=== PATIENT | male | born 1985 | race Hispanic/Latino ===

== ENCOUNTER 2017-03-24 21:44 | Emergency (ER) | payer SELFPAY ==
[2017-03-24 22:17] LABS: Urine Drugs of Abuse Note Disclamer
[2017-03-24 22:19] LABS: Hematocrit 46.4 % (35.5-45.6); Mean Corpuscular HGB Conc 34 % (32-34); Mean Corpuscular Hemoglobin 35 pg (28-32); Mean Corpuscular Volume 102 fl (84-94); Platelet Count 319 K/mm3 (140-440); Red Blood Count 4.54 M/mm3 (3.65-5.03); Red Cell Distribution Width 15.2 % (13.2-15.2); White Blood Count 6.3 K/mm3 (4.5-11.0)
[2017-03-24 22:27] LABS: Bilirubin,Urine NEG (Negative); Blood,Urine NEG (Negative); Ketones,Urine NEG (Negative); Leukocyte Esterase,Urine NEG (Negative); Mucus,Urine FEW /HPF; Nitrite,Urine NEG (Negative); RBC,Urine < 1.0 /HPF (0.0-6.0); Urobilinogen,Urine < 2.0 mg/dL (<2.0); WBC,Urine < 1.0 /HPF (0.0-6.0)
[2017-03-24 22:32] LABS: Anion Gap 21 mmol/L; BUN/Creatinine Ratio 16; Blood Urea Nitrogen 11 mg/dL (9-20); Calcium 9.1 mg/dL (8.4-10.2); Carbon Dioxide 27 mmol/L (22-30); Chloride 99.5 mmol/L (98-107); Glucose 123 mg/dL (75-100); Potassium 4.3 mmol/L (3.6-5.0); Sodium 143 mmol/L (137-145)
[2017-03-24 23:05] LABS: Blastocytes % (Manual) 0 %; Eosinophils % (Manual) 0 % (0.0-4.3)
[2017-03-24 23:07] LABS: Diff Status Complete; Macrocytosis 1+; Platelet Estimate Consistent w Auto
[2017-03-24] MEDS ORDERED: BOOSTRIX IM ONE (23:57)
--- NOTE | 2017-03-24 23:58 | Emergency Department Report ---
<HAL TERRAZAS - Last Filed: 03/25/17 10:33> ED General Adult HPI - General Chief complaint: Psych Stated complaint: DETOX Time Seen by Provider: 03/24/17 23:53 - Related Data Allergies Allergy/AdvReac Type Severity Reaction Status Date / Time No Known Allergies Allergy Verified 03/24/17 21:52 ED Review of Systems ROS: Stated complaint: DETOX Other details as noted in HPI ED Course Vital Signs 03/24/17 03/24/17 03/25/17 21:52 23:57 10:59 Temperature 98.1 F 98.7 F 98 F Pulse Rate 84 83 93 H Respiratory Rate Blood Pressure 129/70 Blood Pressure 139/82 127/70 [Left] O2 Sat by Pulse 98 97 98 Oximetry ED Medical Decision Making - Lab Data Result diagrams: 03/24/17 22:06 03/24/17 22:06 - Radiology Data read By radiologist: CT head: No acute findings CT cervical spine: No acute findings Right hand x-ray: No acute bony abnormality - Medical Decision Making Patient was initially seen and evaluated by Dr. Mahmood. Patient has not a [address] [place] [address] evaluated patient and not a candidate for inpatient treatment. Outpatient resources for [facility] and [facility] have been provided. Alcohol is trending downward. No clinical signs withdrawing gait is steady. Patient has not legally sober however, patient has history of chronic alcohol dependence and may experience alcohol withdrawal symptoms if level drops to low. Patient has a person to pick him up/ride will be discharged upon that person's arrival. Critical care attestation.: If time is entered above; I have spent that time in minutes in the direct care of this critically ill patient, excluding procedure time. ED Disposition Clinical Impression: Alcohol intoxication, Right hand pain, Alcohol abuse Disposition: DC-01 TO HOME OR SELFCARE Is pt being admited?: No Does the pt Need Aspirin: No Condition: Stable Instructions: Abuse of Alcohol (ED), Hand Sprain (ED) Additional Instructions: Follow up with the outpatient resources provided for help with alcohol dependence. Follow-up with orthopedic doctor provided for further evaluation of your hand injury. Take Tylenol or Motrin as needed for pain. Referrals: [facility] [Outside] - 3-[address] [facility], [facility] [Other] - 3-5 Days BOAZ NIETO MD [Staff Physician] - 3-5 Days (orthopedic ) [facility] [Provider Group] - 3-5 Days Time of Disposition: 10:36 <ZOHREH MAHMOOD - Last Filed: 03/26/17 10:08> ED General Adult HPI - General Source: patient Mode of arrival: Ambulatory Limitations: Other (patient poor historian, alcohol intoxication) - History of Present Illness Initial comments: This is a 31-year-old male who is known to this provider, presents to the ER with a complaint of right hand pain status post mechanical fall, alcohol intoxication and requests alcohol detox. Patient is not homicidal or suicidal. He does not think he hit his head or his neck. He has no other complaints. He is not expressing hallucination -: Gradual (patient indicates that he consumed alcohol today) Location: right, upper extremity Radiation: non-radiation Improves with: rest Worsens with: movement Associated Symptoms: loss of appetite ED Review of Systems Constitutional: denies: fever Eyes: denies: eye discharge ENT: denies: epistaxis Respiratory: denies: cough Cardiovascular: denies: chest pain Gastrointestinal: denies: abdominal pain Genitourinary: as per HPI Musculoskeletal: arthralgia, myalgia Skin: lesions Neurological: denies: confusion Psychiatric: denies: homicidal thoughts, suicidal thoughts ED Past Medical Hx - Past Medical History Previous Medical History?: No - Surgical History Past Surgical History?: No - Social History Smoking Status: Current Every Day Smoker Substance Use Type: Alcohol ED Physical Exam - General Limitations: Other (patient has alcohol intoxication) General appearance: alert, appears intoxicated - Head Head exam: Present: atraumatic, normocephalic - Eye Eye exam: Present: normal appearance, EOMI. Absent: nystagmus - ENT ENT exam: Present: normal exam, normal orophraynx, mucous membranes moist, TM's normal bilaterally, normal external ear exam - Neck Neck exam: Present: normal inspection, full ROM. Absent: tenderness, meningismus - Respiratory Respiratory exam: Present: normal lung sounds bilaterally. Absent: respiratory distress, wheezes, rales, rhonchi, stridor, chest wall tenderness, accessory muscle use, decreased breath sounds, prolonged expiratory - Cardiovascular Cardiovascular Exam: Present: regular rate, normal rhythm, normal heart sounds. Absent: bradycardia, tachycardia, irregular rhythm, systolic murmur, diastolic murmur, rubs, gallop - GI/Abdominal GI/Abdominal exam: Present: soft, normal bowel sounds. Absent: distended, tenderness, guarding, rebound, rigid, pulsatile mass - Rectal Rectal exam: Present: deferred - Extremities Exam Extremities exam: Present: full ROM, tenderness, normal capillary refill, other (there are 2+ pulses in the upper and lower extremities, the compartments are soft, the pelvis is stable. The right hand is tender on the hyper thenar eminence, and there is a skin abrasion on the medial aspect of the hypothenar eminence. 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 Absent: pedal edema, joint swelling, calf tenderness - Back Exam Back exam: Present: normal inspection, full ROM. Absent: tenderness, CVA tenderness (R), CVA tenderness (L), muscle spasm, paraspinal tenderness, vertebral tenderness - Neurological Exam Neurological exam: Present: alert, other (Extraocular movements intact. Tongue midline. No facial droop. Facial sensation intact to light touch in the V1, V2 , V3 distribution bilaterally. 5 and 5 strength in 4 extremities.. Sensation is intact to light touch in 4 extremities.). Absent: motor sensory deficit - Psychiatric Psychiatric exam: Present: normal affect, normal mood. Absent: homicidal ideation, suicidal ideation - Skin Skin exam: Present: warm, other (abrasion to right upper extremity medial aspect of hand) ED Course - Reevaluation(s) Reevaluation #1: 03/25/17 01:48 CT scan of the brain and cervical spine negative. Vital signs remained stable, and the patient is resting comfortably. At this point in time, there does not appear to be any emergent medical condition that would preclude detox, the patient is medically stable for detox therapy at this time. Because his blood alcohol level is so elevated, he'll need to be observed, until he metabolizes some of his ethanol, as the local detox facilities typically prefer a level of less than 0.15. This was presented to Mr. Graham Johnson of the crisis team, who is going to assist in facilitating placement. ED Medical Decision Making - Lab Data Result diagrams: 03/24/17 22:06 03/24/17 22:06 Vital Signs 03/24/17 21:52 Temperature 98.1 F Pulse Rate 84 Respiratory 18 Rate Blood Pressure 129/70 O2 Sat by Pulse 98 Oximetry Lab Results 03/24/17 03/24/17 03/24/17 Range/Units 22:02 22:02 22:06 WBC (4.5-11.0) K/mm3 RBC (3.65-5.03) M/mm3 Hgb (11.8-15.2) gm/dl Hct (35.5-45.6) % MCV (84-94) fl MCH (28-32) pg MCHC (32-34) % RDW (13.2-15.2) % Plt Count (140-440) K/mm3 Lymph % (Auto) Add Manual Diff Total Counted Seg Neuts % (Manual) (40.0-70.0) % Band Neutrophils % % Lymphocytes % (Manual) (13.4-35.0) % Reactive Lymphs % (Man) % Monocytes % (Manual) (0.0-7.3) % Eosinophils % (Manual) (0.0-4.3) % Metamyelocytes % % Myelocytes % % Promyelocytes % % Blast Cells % % Nucleated RBC % Seg Neutrophils # Man (1.8-7.7) K/mm3 Band Neutrophils # K/mm3 Lymphocytes # (Manual) (1.2-5.4) K/mm3 Abs React Lymphs (Man) K/mm3 Monocytes # (Manual) (0.0-0.8) K/mm3 Eosinophils # (Manual) (0.0-0.4) K/mm3 Basophils # (Manual) (0.0-0.1) K/mm3 Metamyelocytes # K/mm3 Myelocytes # K/mm3 Promyelocytes # K/mm3 Blast Cells # K/mm3 WBC Morphology Hypersegmented Neuts Hyposegmented Neuts Hypogranular Neuts Smudge Cells Toxic Granulation Toxic Vacuolation Dohle Bodies Pelger-Huet Anomaly Ni Rods Platelet Estimate Clumped Platelets Plt Clumps, EDTA Large Platelets Giant Platelets Platelet Satelliting Plt Morphology Comment RBC Morphology Dimorphic RBCs Polychromasia Hypochromasia Poikilocytosis Anisocytosis Microcytosis Macrocytosis Spherocytes Pappenheimer Bodies Sickle Cells Target Cells Tear Drop Cells Ovalocytes Helmet Cells Lao-New Site Bodies [place] Rings [place] Cells Bite Cells Crenated Cell Elliptocytes Acanthocytes (Spur) Rouleaux Hemoglobin C Crystals Schistocytes Malaria parasites Beau Bodies Hem Pathologist Commnt Sodium 143 (137-145) mmol/L Potassium 4.3 (3.6-5.0) mmol/L Chloride 99.5 (98-107) mmol/L Carbon Dioxide 27 (22-30) mmol/L Anion Gap 21 mmol/L BUN 11 (9-20) mg/dL Creatinine 0.7 L (0.8-1.5) mg/dL Estimated GFR > 60 ml/min BUN/Creatinine Ratio 16 % Glucose 123 H (75-100) mg/dL Calcium 9.1 (8.4-10.2) mg/dL Urine Color Straw (Yellow) Urine Turbidity Clear (Clear) Urine pH 5.0 (5.0-7.0) Ur Specific Mylo 1.014 (1.003-1.030) Urine Protein 30 mg/dl (Negative) mg/dL Urine Glucose (UA) Neg (Negative) mg/dL Urine Ketones Neg (Negative) mg/dL Urine Blood Neg (Negative) Urine Nitrite Neg (Negative) Urine Bilirubin Neg (Negative) Urine Urobilinogen < 2.0 (<2.0) mg/dL Ur Leukocyte Esterase Neg (Negative) Urine WBC (Auto) < 1.0 (0.0-6.0) /HPF Urine RBC (Auto) < 1.0 (0.0-6.0) /HPF Hyaline Casts 1 /LPF Urine Mucus Few /HPF Urine Opiates Screen Presumptive negative Urine Methadone Screen Presumptive negative Ur Barbiturates Screen Presumptive negative Ur Phencyclidine Scrn Presumptive negative Ur Amphetamines Screen Presumptive negative U Benzodiazepines Scrn Presumptive negative Urine Cocaine Screen Presumptive negative U Marijuana (THC) Screen Presumptive negative Drugs of Abuse Note Disclamer Plasma/Serum Alcohol (0-0.07) gm% 03/24/17 03/24/17 Range/Units 22:06 22:06 WBC 6.3 (4.5-11.0) K/mm3 RBC 4.54 (3.65-5.03) M/mm3 Hgb 16.0 H (11.8-15.2) gm/dl Hct 46.4 H (35.5-45.6) % MCV 102 H (84-94) fl MCH 35 H (28-32) pg MCHC 34 (32-34) % RDW 15.2 (13.2-15.2) % Plt Count 319 (140-440) K/mm3 Lymph % (Auto) Entry Tech Add Manual Diff Complete Total Counted 100 Seg Neuts % (Manual) 40.0 (40.0-70.0) % Band Neutrophils % 2.0 % Lymphocytes % (Manual) 49.0 H (13.4-35.0) % Reactive Lymphs % (Man) 6.0 % Monocytes % (Manual) 3.0 (0.0-7.3) % Eosinophils % (Manual) 0 (0.0-4.3) % Metamyelocytes % 0 % Myelocytes % 0 % Promyelocytes % 0 % Blast Cells % 0 % Nucleated RBC % Not Reportable Seg Neutrophils # Man 2.5 (1.8-7.7) K/mm3 Band Neutrophils # 0.1 K/mm3 Lymphocytes # (Manual) 3.1 (1.2-5.4) K/mm3 Abs React Lymphs (Man) 0.4 K/mm3 Monocytes # (Manual) 0.2 (0.0-0.8) K/mm3 Eosinophils # (Manual) 0.0 (0.0-0.4) K/mm3 Basophils # (Manual) 0.0 (0.0-0.1) K/mm3 Metamyelocytes # 0.0 K/mm3 Myelocytes # 0.0 K/mm3 Promyelocytes # 0.0 K/mm3 Blast Cells # 0.0 K/mm3 WBC Morphology Not Reportable Hypersegmented Neuts Not Reportable Hyposegmented Neuts Not Reportable Hypogranular Neuts Not Reportable Smudge Cells Not Reportable Toxic Granulation Not Reportable Toxic Vacuolation Not Reportable Dohle Bodies Not Reportable Pelger-Huet Anomaly Not Reportable Ni Rods Not Reportable Platelet Estimate Consistent w auto Clumped Platelets Not Reportable Plt Clumps, EDTA Not Reportable Large Platelets Not Reportable Giant Platelets Not Reportable Platelet Satelliting Not Reportable Plt Morphology Comment Not Reportable RBC Morphology Not Reportable Dimorphic RBCs Not Reportable Polychromasia Not Reportable Hypochromasia Not Reportable Poikilocytosis Not Reportable Anisocytosis Not Reportable Microcytosis Not Reportable Macrocytosis 1+ Spherocytes Not Reportable Pappenheimer Bodies Not Reportable Sickle Cells Not Reportable Target Cells Not Reportable Tear Drop Cells Not Reportable Ovalocytes Not Reportable Helmet Cells Not Reportable Lao-New Site Bodies Not Reportable Park Rings Not Reportable Adelina Cells Not Reportable Bite Cells Not Reportable Crenated Cell Not Reportable Elliptocytes Not Reportable Acanthocytes (Spur) Not Reportable Rouleaux Not Reportable Hemoglobin C Crystals Not Reportable Schistocytes Not Reportable Malaria parasites Not Reportable Beau Bodies Not Reportable Hem Pathologist Commnt No Sodium (137-145) mmol/L Potassium (3.6-5.0) mmol/L Chloride (98-107) mmol/L Carbon Dioxide (22-30) mmol/L Anion Gap mmol/L BUN (9-20) mg/dL Creatinine (0.8-1.5) mg/dL Estimated GFR ml/min BUN/Creatinine Ratio % Glucose (75-100) mg/dL Calcium (8.4-10.2) mg/dL Urine Color (Yellow) Urine Turbidity (Clear) Urine pH (5.0-7.0) Ur Specific Mylo (1.003-1.030) Urine Protein (Negative) mg/dL Urine Glucose (UA) (Negative) mg/dL Urine Ketones (Negative) mg/dL Urine Blood (Negative) Urine Nitrite (Negative) Urine Bilirubin (Negative) Urine Urobilinogen (<2.0) mg/dL Ur Leukocyte Esterase (Negative) Urine WBC (Auto) (0.0-6.0) /HPF Urine RBC (Auto) (0.0-6.0) /HPF Hyaline Casts /LPF Urine Mucus /HPF Urine Opiates Screen Urine Methadone Screen Ur Barbiturates Screen Ur Phencyclidine Scrn Ur Amphetamines Screen U Benzodiazepines Scrn Urine Cocaine Screen U Marijuana (THC) Screen Drugs of Abuse Note Plasma/Serum Alcohol 0.42 H (0-0.07) gm% - Radiology Data Radiology results: image reviewed interpreted by me: X-ray of the right hand is negative for acute disease - Medical Decision Making Differential diagnosis: Hand sprain, hand strain, fracture, dislocation, intracranial injury, cervical spine injury, medical clearance for alcohol detox Assessment and plan: 31-year-old male who is requesting alcohol detox, he is intoxicated at this time, but does not require 1013. CT scan of the brain and cervical spine ordered, x-ray of the hand negative, patient will be placed in a left hand ulnar gutter, we will consult crisis team to assist with management, patient not actively withdrawing at this time.
--- NOTE | 2017-03-25 00:07 | XRay Report ---
FINAL REPORT EXAM: XR HAND 2V RT HISTORY: RIGHT HAND/WRIST PAIN COMPARISON: None available. FINDINGS: Two views the right hand obtained. Bony structures are intact. Joint spaces are preserved. No acute fracture dislocation. There is a skin fold projecting over the scaphoid bone. No discrete fracture. IMPRESSION: No acute bony abnormality.
--- NOTE | 2017-03-25 01:24 | Cat Scan Report ---
FINAL REPORT EXAM: CT HEAD/BRAIN WO CON HISTORY: etoh fall COMPARISON: None available. TECHNIQUE: Axial images obtained skull base through vertex. FINDINGS: No acute intracranial hemorrhage, midline shift or pathologic extra axial fluid collection. Ventricles and cisterns are normal in size and configuration for the patient's age. Elias-white differentiation preserved. Calvarium grossly intact. Orbits are grossly unremarkable. Visualized para-nasal sinuses and mastoid air cells are clear. IMPRESSION: No grossly acute intracranial abnormality.
--- NOTE | 2017-03-25 01:39 | Cat Scan Report ---
FINAL REPORT EXAM: CT CERVICAL SPINE WO CON HISTORY: etoh fall TECHNIQUE: Routine axial imaging was obtained of the cervical spine with sagittal and coronal reconstructions. FINDINGS: The disc heights and alignment appear normal. The canal size is normal. There is no evidence of fracture. The pre vertebral soft tissues and C1-C2 articulation appear intact IMPRESSION: Negative exam
[2017-03-25] MEDS ORDERED: ZOFRAN ODT PO PRN (01:49)
[2017-03-25] MEDS ORDERED: TYLENOL PO PRN (01:49)
[2017-03-25] MEDS ORDERED: ATIVAN IM PRN (01:49)
[2017-03-25] MEDS ORDERED: BOOSTRIX IM ONE (03:18)
[2017-03-25 11:01] VITALS: BP 127/70
== END 2017-03-25 11:08 | disposition home or self-care (01) ==
LOC: ED 21:44
DX: F10.129 Alcohol abuse with intoxication, unspecified (principal); M79.641 Pain in right hand; F17.200 Nicotine dependence, unspecified, uncomplicated; W17.89XA Other fall from one level to another, initial encounter; Y93.89 Activity, other specified; Y92.89 Other specified places as the place of occurrence of the external cause; Y99.8 Other external cause status
CPT/HCPCS: 29125; 36415; 70450; 72125; 73120; 80048; 80307; 81001; 85007; 85025; 90471; 90715; 99285; G0480; 80320

== ENCOUNTER 2017-03-26 08:14 | Emergency (ER) | payer SELFPAY ==
[2017-03-26 08:21] VITALS: BP 132/88
[2017-03-26 09:00] LABS: Anion Gap 21 mmol/L; BUN/Creatinine Ratio 17; Blood Urea Nitrogen 10 mg/dL (9-20); Calcium 9.3 mg/dL (8.4-10.2); Carbon Dioxide 30 mmol/L (22-30); Chloride 96.1 mmol/L (98-107); Glucose 148 mg/dL (75-100); Potassium 4.3 mmol/L (3.6-5.0); Sodium 143 mmol/L (137-145)
[2017-03-26 09:01] LABS: Hematocrit 48.5 % (35.5-45.6); Hemoglobin 16.6 gm/dl (11.8-15.2); Mean Corpuscular HGB Conc 34 % (32-34); Mean Corpuscular Hemoglobin 35 pg (28-32); Mean Corpuscular Volume 102 fl (84-94); Platelet Count 305 K/mm3 (140-440); Red Blood Count 4.78 M/mm3 (3.65-5.03); Red Cell Distribution Width 14.7 % (13.2-15.2); White Blood Count 4.9 K/mm3 (4.5-11.0)
[2017-03-26 09:41] LABS: Blastocytes % (Manual) 0 %; Eosinophils % (Manual) 0 % (0.0-4.3)
[2017-03-26 09:42] LABS: Diff Status Complete; Macrocytosis 1+
== END 2017-03-26 08:30 | disposition left against medical advice (07) ==
LOC: ED 08:14
DX: Z53.21 Procedure and treatment not carried out due to patient leaving prior to being seen by health care provider (principal)
CPT/HCPCS: 36415; 80048; 85007; 85025; G0480; 80320

== ENCOUNTER 2017-12-01 18:46 | Inpatient (IN) | payer SELFPAY ==
[2017-12-01] MEDS ORDERED: NACL 0.9% 1000 ML 1,000 ML IV ONE ×2 (19:37→21:58)
[2017-12-01 20:14] LABS: Basophils % (Auto) 0.7 % (0.0-1.8); Hematocrit 42.8 % (35.5-45.6); Hemoglobin 14.4 gm/dl (11.8-15.2); Lymphocytes # (Auto) 0.5 K/mm3 (1.2-5.4); Lymphocytes % (Auto) 9.3 % (13.4-35.0); Mean Corpuscular HGB Conc 34 % (32-34); Mean Corpuscular Hemoglobin 33 pg (28-32); Mean Corpuscular Volume 97 fl (84-94); Monocytes # (Auto) 0.4 K/mm3 (0.0-0.8); Monocytes % (Auto) 8.2 % (0.0-7.3); Platelet Count 182 K/mm3 (140-440); Red Blood Count 4.41 M/mm3 (3.65-5.03); Red Cell Distribution Width 16.3 % (13.2-15.2)
[2017-12-01 20:33] LABS: Alanine Aminotransferase 53 units/L (7-56); Albumin 4.3 g/dL (3.9-5); BUN/Creatinine Ratio 4; Blood Urea Nitrogen 3 mg/dL (9-20); Calcium 9.3 mg/dL (8.4-10.2); Hemolysis Index 7
[2017-12-01] MEDS ORDERED: MORPHINE IV ONE (21:56)
[2017-12-01] MEDS ORDERED: ZOFRAN IV ONE (21:57)
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
[2017-12-01 22:04] LABS: Bilirubin,Urine NEG (Negative); Blood,Urine SM (Negative); Color,Urine Yellow (Yellow); Mucus,Urine 2+ /HPF; Urobilinogen,Urine < 2.0 mg/dL (<2.0)
[2017-12-01 22:32] LABS: INR 0.91 (0.87-1.13); Partial Thromboplastin Time 30.2 Sec. (24.2-36.6)
--- NOTE | 2017-12-02 00:08 | Ultrasound Report ---
FINAL REPORT EXAM: US ABDOMEN LIMITED HISTORY: pain COMPARISON: None available. TECHNIQUE: Several real-time grayscale and color Doppler images were obtained. FINDINGS: There is increased echogenicity of the liver compatible with fatty infiltration. Visualized aorta is normal in caliber. No shadowing gallstones or gallbladder wall thickening. No biliary dilatation. The common bile duct measures 4 millimeters. Right kidney measures 10.1 centimeters in length. No gross focal renal lesion or hydronephrosis. Visualized pancreas is unremarkable. IMPRESSION: No cholelithiasis or biliary dilatation.
[2017-12-02] MEDS ORDERED: ZOFRAN IV ONE (00:16)
[2017-12-02] MEDS ORDERED: NACL 0.9% 1000 ML 1,000 ML IV ONE (00:16)
[2017-12-02] MEDS ORDERED: MORPHINE IV ONE (00:16)
[2017-12-02] MEDS ORDERED: SODIUM CHLORIDE FLUSH SYRINGE 10 ML IV PRN (01:07)
[2017-12-02] MEDS ORDERED: ATIVAN IV PRN ×2 (01:07)
[2017-12-02] MEDS ORDERED: TYLENOL PO PRN (01:07)
[2017-12-02] MEDS ORDERED: ZOFRAN IV PRN (01:07)
--- NOTE | 2017-12-02 01:11 | History and Physical Report ---
History of Present Illness Date of examination: 12/02/17 History of present illness: 31 year old man with history of alcohol abusecomes to the ER for evaluation of abdominal pain that started 3 days ago. Chest pain is in the epigastric area , sharp, constant, intensity 10/10, radiating to the left back ,worse with eating, better with pain medications. Admits nausea vomiting, diaphoresis, palpitations. and diarrhea Review of systems Constitutional: no weight loss, chills Ears, eyes, nose, mouth and throat: no nasal congestion, no nasal discharge, no sinus pressure, no vision change, no red eye. Neck: No neck pain or rigidity. Cardiovascular: no chest pain, palpitations Respiratory: no cough, shortness of breath Gastrointestinal: no hematochezia Genitourinary : no frequency , no hematuria Musculoskeletal: no joint swelling or muscle ache Integumentary: no rash, no pruritis Neurological: no parathesias, no numbness, no focal weakness Endocrine: no cold or heat intolerance, no polyuria or polydipsia Hematologic/Lymphatic: no easy bruising, no easy bleeding, no gland swelling Allergic/Immunologic: no urticaria, no angioedema. PAST MEDICAL HISTORY: alcohol abuse PAST SURGICAL HISTORY: None SOCIAL HISTORY: No drugs, smoke 1/3 pack a day, drinks 6 beers/day FAMILY HISTORY: Hypertension Medications and Allergies Allergies Allergy/AdvReac Type Severity Reaction Status Date / Time No Known Allergies Allergy Verified 03/24/17 21:52 Active Meds: Active Medications Acetaminophen (Tylenol) 650 mg PO Q4H PRN PRN Reason: Pain MILD(1-3)/Fever >100.5/[place] Enoxaparin Sodium (Lovenox) 30 mg SUB-Q QDAY CORBIN Sodium Chloride (Nacl 0.9% 1000 Ml) 1,000 mls @ 125 mls/hr IV ONCE ONE Stop: 12/02/17 08:15 Sodium Chloride (Nacl 0.9% 1000 Ml) 1,000 mls @ 150 mls/hr IV DIRECT CORBIN Lorazepam (Ativan) 2 mg IV Q1HR PRN PRN Reason: CIWA-Ar 8-15 Lorazepam (Ativan) 4 mg IV Q1HR PRN PRN Reason: CIWA-Ar 16-25 Morphine Sulfate (Morphine) 2 mg IV Q4H PRN PRN Reason: Pain, Moderate (4-6) Ondansetron HCl (Zofran) 4 mg IV Q4H PRN PRN Reason: Nausea And Vomiting Sodium Chloride (Sodium Chloride Flush Syringe 10 Ml) 10 ml IV BID CORBIN Sodium Chloride (Sodium Chloride Flush Syringe 10 Ml) 10 ml IV PRN PRN PRN Reason: LINE FLUSH Exam - Physical Exam Narrative exam: Gen. appearance: Patient lying in bed, no apparent distress HEENT: Normocephalic, atraumatic, pupils equally round and reactive to light, eyes are , extraocular movement intact, and no sclericterus,. No JVD or thyromegaly or nodule,neck supple, no carotid bruit ,mucous membranes dry, no exudate or erythema Heart: S1, S2, regular rate and rhythm Lungs: Clear bilaterally, breathing comfortable Abdomen: Positive bowel sounds, tender in the epigatric area, nondistended, no organomegaly Extremity:no edema cyanosis, clubbing Skin: no rash, dry Neuro: Oriented 3, cranial nerves II-12 intact, speech is fluent, motor and sensory intact - Constitutional Vitals: Temp Pulse Resp BP Pulse Ox 100.1 F H 82 16 139/94 98 12/01/17 22:00 12/01/17 22:00 12/01/17 22:44 12/01/17 22:00 12/01/17 22:00 Results - Labs CBC & Chem 7: 12/01/17 19:40 12/01/17 19:40 Labs: Abnormal lab results 12/01/17 12/01/17 12/01/17 Range/Units 19:40 19:40 21:56 MCV 97 H (84-94) fl MCH 33 H (28-32) pg RDW 16.3 H (13.2-15.2) % Lymph % (Auto) 9.3 L (13.4-35.0) % Chaves % (Auto) 8.2 H (0.0-7.3) % Lymph # 0.5 L (1.2-5.4) K/mm3 Seg Neutrophils % 81.8 H (40.0-70.0) % Sodium 135 L (137-145) mmol/L Chloride 92.9 L (98-107) mmol/L BUN 3 L (9-20) mg/dL Creatinine 0.7 L (0.8-1.5) mg/dL Glucose 118 H (75-100) mg/dL AST 101 H (5-40) units/L Lipase 1245 H (13-60) units/L - Imaging and Cardiology US - abdomen: report reviewed Assessment and Plan Assessment Acute on chronic pancreatitis, alcohol induced SIRS Alcohol Abuse Plan Admit to medicine Bowel rest , start IV fluid, morphine start emperic IV rocephin, check blood cultures, xry CIWA protocol with IV ativan DVT prophalaxis
[2017-12-02] MEDS ORDERED: MORPHINE ONE (01:18)
[2017-12-02] MEDS ORDERED: ZOFRAN ONE (01:19)
[2017-12-02] MEDS ORDERED: NACL 0.9% 1000 ML 1,000 ML ONE (01:19)
--- NOTE | 2017-12-02 01:43 | XRay Report ---
FINAL REPORT EXAM: XR CHEST 1V AP HISTORY: fever COMPARISON: None available. FINDINGS: Frontal view(s) of the chest obtained. Cardiac silhouette within normal limits. No gross consolidation or effusion. No pneumothorax. IMPRESSION: No grossly acute findings.
[2017-12-02] MEDS ORDERED: NACL 0.9% 1000 ML 1,000 ML IV SCH (02:00)
[2017-12-02] MEDS: MORPHINE IV PRN ×4 (05:25→21:58)
[2017-12-02 07:27] LABS: Basophils % (Auto) 0.7 % (0.0-1.8); Eosinophils # (Auto) 0.1 K/mm3 (0.0-0.4); Hematocrit 40.3 % (35.5-45.6); Hemoglobin 13.5 gm/dl (11.8-15.2); Lymphocytes # (Auto) 1.3 K/mm3 (1.2-5.4); Lymphocytes % (Auto) 21.8 % (13.4-35.0); Mean Corpuscular HGB Conc 33 % (32-34); Mean Corpuscular Hemoglobin 33 pg (28-32); Mean Corpuscular Volume 97 fl (84-94); Monocytes # (Auto) 0.4 K/mm3 (0.0-0.8); Monocytes % (Auto) 7.3 % (0.0-7.3); Platelet Count 152 K/mm3 (140-440); Red Blood Count 4.14 M/mm3 (3.65-5.03); Red Cell Distribution Width 16.3 % (13.2-15.2)
[2017-12-02 07:49] LABS: BUN/Creatinine Ratio 5; Blood Urea Nitrogen 3 mg/dL (9-20); Calcium 8.8 mg/dL (8.4-10.2); Hemolysis Index 6
[2017-12-02] MEDS ORDERED: LOVENOX SUB-Q SCH (10:00)
[2017-12-02] MEDS: ROCEPHIN/NS 1 GM/50 ML 1 GM/50 ML BAG IV SCH (10:00)
[2017-12-02] MEDS: LOVENOX SUB-Q SCH (10:19)
[2017-12-02] MEDS: SODIUM CHLORIDE FLUSH SYRINGE 10 ML IV SCH ×2 (10:20→22:00)
--- NOTE | 2017-12-02 15:53 | Progress Note ---
Assessment and Plan Acute on chronic pancreatitis, alcohol induced SIRS, likely from Pancreatitis Alcohol Abuse, on withdrawl protocol - monitor at medicine - cont Bowel rest , IV fluid with D5 NS, morphine iv as needed - cont emperic IV rocephin, follow blood cultures, negative chest xry - cont CIWA protocol with IV ativan - DVT prophalaxis with lovenox Brief History: 31 year old man with history of alcohol abuse came to the ER for evaluation of abdominal pain that started 3 days ago. His lipase was elevated upto 1200. Radiological data: CXR: No grossly acute findings. Abdominal US: No cholelithiasis or biliary dilatation. Hospitalist Physical exam: GENERAL: young male lying on bed appeared to be in no discomfort. HEENT: Normocephalic. Atraumatic. No conjunctival congestion or icterus. Patient has moist mucous membranes. NECK: Supple. Trachea midline. CHEST/LUNGS: Clear to auscultated bilaterally, breathing nonlabored. No wheezes crackles or rhonchi. HEART/CARDIOVASCULAR: Regular in rate and rhythm. S1 and S2 positive. ABDOMEN: Abdomen is soft, epigastric tenderness. Patient has normal bowel sounds. SKIN: There is no rash. Warm and dry. NEURO: No focal motor deficit. Follows command. MUSCULOSKELETAL: No joint effusion or tenderness. EXTRIMITY: No edema, no cyanosis or clubbing. PSYCH: Cooperative. Subjective Date of service: 12/02/17 Interval history: Patient seen and examined. Medical records and medication list reviewed. No acute event overnight noted by the RN. Patient denies any chest pain or difficulty breathing. Patient still having significant nausea and abdominal pain. Does not think can start eating today. Discussed plan of care at bedside with patient. Objective - Constitutional Vitals: Vital Signs - 12hr 12/02/17 12/02/17 12/02/17 05:15 11:10 12:15 Temperature 99.8 F H 98.0 F Pulse Rate 73 78 Respiratory 18 18 Rate Blood Pressure 139/76 140/82 O2 Sat by Pulse 95 100 98 Oximetry - Labs CBC & Chem 7: 12/02/17 06:28 12/03/17 08:01 Labs: Abnormal lab results 12/01/17 12/01/17 12/01/17 Range/Units 19:40 19:40 21:56 MCV 97 H (84-94) fl MCH 33 H (28-32) pg RDW 16.3 H (13.2-15.2) % Lymph % (Auto) 9.3 L (13.4-35.0) % [place] % (Auto) 8.2 H (0.0-7.3) % Lymph # 0.5 L (1.2-5.4) K/mm3 Seg Neutrophils % 81.8 H (40.0-70.0) % Sodium 135 L (137-145) mmol/L Chloride 92.9 L (98-107) mmol/L BUN 3 L (9-20) mg/dL Creatinine 0.7 L (0.8-1.5) mg/dL Glucose 118 H (75-100) mg/dL AST 101 H (5-40) units/L Amylase (27-131) units/L Lipase 1245 H (13-60) units/L 12/02/17 12/02/17 12/02/17 Range/Units 01:17 06:22 06:28 MCV 97 H (84-94) fl MCH 33 H (28-32) pg RDW 16.3 H (13.2-15.2) % Lymph % (Auto) (13.4-35.0) % [place] % (Auto) (0.0-7.3) % Lymph # (1.2-5.4) K/mm3 Seg Neutrophils % (40.0-70.0) % Sodium (137-145) mmol/L Chloride 97.7 L (98-107) mmol/L BUN 3 L (9-20) mg/dL Creatinine 0.6 L (0.8-1.5) mg/dL Glucose (75-100) mg/dL AST (5-40) units/L Amylase 320 H (27-131) units/L Lipase (13-60) units/L
[2017-12-02] MEDS: D5W/NS W/KCL 20MEQ 20 MEQ/1,000 ML BAG IV SCH (18:29)
[2017-12-03 09:03] LABS: BUN/Creatinine Ratio 5; Blood Urea Nitrogen 3 mg/dL (9-20); Calcium 9.4 mg/dL (8.4-10.2); Hemolysis Index 2; Lipase 227 units/L (13-60)
[2017-12-03] MEDS: D5W/NS W/KCL 20MEQ 20 MEQ/1,000 ML BAG IV SCH (10:54)
[2017-12-03] MEDS: LOVENOX SUB-Q SCH (10:57)
[2017-12-03] MEDS: ROCEPHIN/NS 1 GM/50 ML 1 GM/50 ML BAG IV SCH (10:57)
[2017-12-03] MEDS: SODIUM CHLORIDE FLUSH SYRINGE 10 ML IV SCH ×2 (10:58→21:38)
--- NOTE | 2017-12-03 14:08 | Progress Note ---
Assessment and Plan Acute on chronic pancreatitis, alcohol induced SIRS, likely from Pancreatitis Alcohol Abuse, on withdrawl protocol - monitor at medicine - start on clear liquid , IV fluid with D5 NS, morphine iv as needed - cont emperic IV rocephin, follow blood cultures, negative chest xry - cont CIWA protocol with IV ativan - DVT prophalaxis with lovenox Brief History: 31 year old man with history of alcohol abuse came to the ER for evaluation of abdominal pain that started 3 days ago. His lipase was elevated upto 1200. Radiological data: CXR: No grossly acute findings. Abdominal US: No cholelithiasis or biliary dilatation. Hospitalist Physical exam: GENERAL: young male lying on bed appeared to be in no discomfort. HEENT: Normocephalic. Atraumatic. No conjunctival congestion or icterus. Patient has moist mucous membranes. NECK: Supple. Trachea midline. CHEST/LUNGS: Clear to auscultated bilaterally, breathing nonlabored. No wheezes crackles or rhonchi. HEART/CARDIOVASCULAR: Regular in rate and rhythm. S1 and S2 positive. ABDOMEN: Abdomen is soft, epigastric tenderness. Patient has normal bowel sounds. SKIN: There is no rash. Warm and dry. NEURO: No focal motor deficit. Follows command. MUSCULOSKELETAL: No joint effusion or tenderness. EXTRIMITY: No edema, no cyanosis or clubbing. PSYCH: Cooperative. Subjective Date of service: 12/03/17 Interval history: Patient seen and examined. Medical records and medication list reviewed. No acute event overnight noted by the RN. Patient denies any chest pain or difficulty breathing. Patient still having nausea and abdominal pain but lot better today Discussed plan of care at bedside with patient. Objective - Constitutional Vitals: Vital Signs - 12hr 12/03/17 12/03/17 05:30 11:44 Temperature 99.7 F H 99.1 F Pulse Rate 72 70 Respiratory 24 18 Rate Blood Pressure 124/90 138/91 O2 Sat by Pulse 98 98 Oximetry - Labs CBC & Chem 7: 12/02/17 06:28 12/03/17 08:01 Labs: Abnormal lab results 12/03/17 Range/Units 08:01 Sodium 132 L D (137-145) mmol/L Chloride 91.7 L (98-107) mmol/L BUN 3 L (9-20) mg/dL Creatinine 0.6 L (0.8-1.5) mg/dL Lipase 227 H (13-60) units/L
[2017-12-03] MEDS: MORPHINE IV PRN (21:37)
[2017-12-04] MEDS: D5W/NS W/KCL 20MEQ 20 MEQ/1,000 ML BAG IV SCH ×2 (00:54→19:07)
[2017-12-04] MEDS: MORPHINE IV PRN ×2 (11:16→19:07)
[2017-12-04] MEDS: LOVENOX SUB-Q SCH (11:16)
[2017-12-04] MEDS: SODIUM CHLORIDE FLUSH SYRINGE 10 ML IV SCH ×2 (11:17→22:47)
--- NOTE | 2017-12-04 11:57 | Discharge Summary ---
Providers - Providers Date of Admission: 12/02/17 01:07 Date of discharge: 12/05/17 Attending physician: KIMO ELISE Primary care physician: LISE BRICENO MD Hospitalization Condition: Fair Hospital course: Brief History: 31 year old man with history of alcohol abuse came to the ER for evaluation of abdominal pain that started 3 days ago. His lipase was elevated upto 1200. Discharge diagnosis: Acute on chronic pancreatitis, alcohol induced SIRS, likely from Pancreatitis Alcohol Abuse, on withdrawl protocol - monitor at medicine - start on clear liquid , IV fluid with D5 NS, morphine iv as needed - cont emperic IV rocephin, follow blood cultures, negative chest xry - cont CIWA protocol with IV ativan - DVT prophalaxis with lovenox Radiological data: CXR: No grossly acute findings. Abdominal US: No cholelithiasis or biliary dilatation. Hospitalist Physical exam: GENERAL: young male lying on bed appeared to be in no discomfort. HEENT: Normocephalic. Atraumatic. No conjunctival congestion or icterus. Patient has moist mucous membranes. NECK: Supple. Trachea midline. CHEST/LUNGS: Clear to auscultated bilaterally, breathing nonlabored. No wheezes crackles or rhonchi. HEART/CARDIOVASCULAR: Regular in rate and rhythm. S1 and S2 positive. ABDOMEN: Abdomen is soft, epigastric tenderness. Patient has normal bowel sounds. SKIN: There is no rash. Warm and dry. NEURO: No focal motor deficit. Follows command. MUSCULOSKELETAL: No joint effusion or tenderness. EXTRIMITY: No edema, no cyanosis or clubbing. PSYCH: Cooperative. Disposition: - TO HOME OR SELFCARE Time spent for discharge: 32 minutes Core Measure Documentation - Palliative Care Palliative Care/ Comfort Measures: Not Applicable - Core Measures Any of the following diagnoses?: none Exam - Constitutional Vitals: Temp Pulse Resp BP Pulse Ox 99.1 F 70 20 136/85 99 12/04/17 05:28 12/04/17 05:28 12/04/17 05:28 12/04/17 05:28 12/04/17 05:28 Plan Activity: advance as tolerated Weight Bearing Status: Weight Bear as Tolerated Diet: advance as tolerated Follow up with: PRIMARY CAREMD [Primary Care Provider] - 3-5 Days
[2017-12-04] MEDS: ROCEPHIN/NS 1 GM/50 ML 1 GM/50 ML BAG IV SCH (12:24)
--- NOTE | 2017-12-05 12:02 | Progress Note ---
Assessment and Plan Acute on chronic pancreatitis, alcohol induced SIRS, likely from Pancreatitis Alcohol Abuse, on withdrawl protocol - monitor at medicine - advance to full liquid , IV fluid with D5 NS, morphine iv as needed - cont emperic IV rocephin, follow blood cultures, negative chest xry - cont CIWA protocol with IV ativan - DVT prophalaxis with lovenox Brief History: 31 year old man with history of alcohol abuse came to the ER for evaluation of abdominal pain that started 3 days ago. His lipase was elevated upto 1200. Radiological data: CXR: No grossly acute findings. Abdominal US: No cholelithiasis or biliary dilatation. Hospitalist Physical exam: GENERAL: young male lying on bed appeared to be in no discomfort. HEENT: Normocephalic. Atraumatic. No conjunctival congestion or icterus. Patient has moist mucous membranes. NECK: Supple. Trachea midline. CHEST/LUNGS: Clear to auscultated bilaterally, breathing nonlabored. No wheezes crackles or rhonchi. HEART/CARDIOVASCULAR: Regular in rate and rhythm. S1 and S2 positive. ABDOMEN: Abdomen is soft, epigastric tenderness. Patient has normal bowel sounds. SKIN: There is no rash. Warm and dry. NEURO: No focal motor deficit. Follows command. MUSCULOSKELETAL: No joint effusion or tenderness. EXTRIMITY: No edema, no cyanosis or clubbing. PSYCH: Cooperative. Subjective Date of service: 12/04/17 Interval history: Patient seen and examined. Medical records and medication list reviewed. No acute event overnight noted by the RN. Patient denies any chest pain or difficulty breathing. Patient still having nausea and abdominal pain but lot better today tolerated clear liquid Discussed plan of care at bedside with patient. Objective - Labs CBC & Chem 7: 12/02/17 06:28 12/03/17 08:01
[2017-12-05 12:11] VITALS: BP 127/75
[2017-12-05] MEDS: SODIUM CHLORIDE FLUSH SYRINGE 10 ML IV SCH (14:00)
[2017-12-05] MEDS: ROCEPHIN/NS 1 GM/50 ML 1 GM/50 ML BAG IV SCH (14:00)
[2017-12-05] MEDS: LOVENOX SUB-Q SCH (14:00)
== END 2017-12-05 14:15 | disposition home or self-care (01) | DRG 439 ==
LOC: ED 18:46 → 3A 12-02 01:07
PROVIDERS: ADMIT Internal Medicine; ATTEND Internal Medicine
DX: K85.20 Alcohol induced acute pancreatitis without necrosis or infection (principal); R65.10 Systemic inflammatory response syndrome (SIRS) of non-infectious origin without acute organ dysfunction; F10.10 Alcohol abuse, uncomplicated; K86.0 Alcohol-induced chronic pancreatitis; F17.200 Nicotine dependence, unspecified, uncomplicated; Z82.49 Family history of ischemic heart disease and other diseases of the circulatory system; Z79.899 Other long term (current) drug therapy
CPT/HCPCS: 36415; 71045; 76705; 80048; 80053; 81001; 82150; 83690; 85025; 85610; 85730; 87040; J0696; J1650; J2270; J2405; J7030